=== PATIENT | female | born 1935 | race Caucasian/White ===

== ENCOUNTER 2018-08-05 13:49 | Outpatient (CLI) | payer MEDICARE, OTHER ==
[2018-08-05] MEDS ORDERED: NAPH15DR66 EACHEYE (15:00)
[2018-08-05] MEDS ORDERED: ACET-1600 PO (15:00)
[2018-08-05] MEDS ORDERED: FLUT9.9S NAS (15:00)
[2018-08-05] MEDS ORDERED: LEVO50TA5 PO (15:00)
[2018-08-05] MEDS ORDERED: PHAZYME PO (15:00)
[2018-08-05] MEDS ORDERED: VIT1CAPS42 PO (15:00)
[2018-08-05] MEDS ORDERED: ASPI81TA45 PO (15:00)
[2018-08-05] MEDS ORDERED: ZOLP10TA5 PO (15:00)
[2018-08-05] MEDS ORDERED: BENEFIBER (15:00)
[2018-08-05] MEDS ORDERED: [UNRECOGNIZED DRUG - OTHER] NS (15:00)
[2018-08-05] MEDS ORDERED: LORA2TAB PO (15:00)
[2018-08-05] MEDS ORDERED: ZANTAC PO (15:00)
[2018-08-05] MEDS ORDERED: CHOL10003 PO (15:00)
[2018-08-05 15:12] LABS: BASOPHILS # (AUTO) 0.03 x10^3/uL (0-0.1); BASOPHILS % (AUTO) 0 % (0-1); EOSINOPHILS % (AUTO) 1 % (1-7); LYMPHOCYTES # (AUTO) 2.88 x10^3/uL (1-3.4); LYMPHOCYTES % (AUTO) 31 % (22-44); MD NO; MEAN CORPUSCULAR HEMOGLOBIN 30.8 pg (27.0-34.8); MEAN CORPUSCULAR HGB CONC 34.1 g/dL (32.4-35.8); MEAN CORPUSCULAR VOLUME 90.2 fL (80-100); MEAN PLATELET VOLUME 8.7 fL (7.4-10.4); MONOCYTES # (AUTO) 0.54 x10^3/uL (0.2-0.8); MONOCYTES % (AUTO) 6 % (2-9); NEUTROPHILS # (AUTO) 5.63 x10^3/uL (1.8-6.8); NEUTROPHILS % (AUTO) 61 % (42-75); PLATELET COUNT 207 x10^3/uL (130-400); RED BLOOD COUNT 4.77 x10^6/uL (3.82-5.3); RED CELL DISTRIBUTION WIDTH 13.6 % (9.6-15.2)
[2018-08-05 15:15] LABS: ALANINE AMINOTRANSFERASE 18 U/L (12-78); ALBUMIN 4.1 g/dL (3.4-5.0); ANION GAP 7 mmol/L (5-15); CHLORIDE 107 mmol/L (98-107)
[2018-08-05 15:17] LABS: ALKALINE PHOSPHATASE 77 U/L (45-117); BILIRUBIN,TOTAL 0.4 mg/dL (0.2-1.0); TOTAL PROTEIN 7.6 g/dL (6.4-8.2)
[2018-08-05 15:56] LABS: INTERNATIONAL NORMALIZED RATIO 1.15 (0.93-1.1)
== END 2018-08-05 23:59 | disposition home or self-care (01) ==
LOC: STAR 13:49
PROVIDERS: ATTEND Specialist
DX: Z01.818 Encounter for other preprocedural examination (principal); N81.10 Cystocele, unspecified; I51.7 Cardiomegaly; R94.31 Abnormal electrocardiogram [ECG] [EKG]
CPT/HCPCS: 36415; 71046; 80053; 85025; 85610; 85730; 93005

== ENCOUNTER 2018-08-16 05:56 | Day surgery (SDC) | payer MEDICARE, OTHER ==
[~2018-08-16] VITALS: Ht 158.8 cm; Wt 78.5 kg
[~2018-08-16 05:56] MED LIST: ACET-1600 PO; ASPI81TA45 PO; BENEFIBER; CHOL10003 PO; FLUT9.9S NAS; LEVO50TA5 PO; LORA2TAB PO; NAPH15DR66 EACHEYE; PHAZYME PO; VIT1CAPS42 PO; ZANTAC PO; ZOLP10TA5 PO; [UNRECOGNIZED DRUG - OTHER] NS
[2018-08-16] MEDS ORDERED: LACTATED RINGERS 1,000 ML IV SCH (07:14)
[2018-08-16 07:23] VITALS: BP 160/77
[2018-08-16] MEDS ORDERED: BUPIVACAINE/PF 0.25% ONE (10:24)
[2018-08-16] MEDS ORDERED: FENTANYL PF 250 MCG/5ML ONE (10:56)
[2018-08-16] MEDS ORDERED: NEOSTIGMINE 1 MG/ML, 10ML ONE (12:42)
[2018-08-16] MEDS ORDERED: PROPOFOL 10 MG/ML, 20ML ONE (12:42)
[2018-08-16] MEDS ORDERED: DEXAMETHASONE 4 MG/ML, 1ML ONE (12:42)
[2018-08-16] MEDS ORDERED: ONDANSETRON 2MG/ML, 2ML ONE (12:42)
[2018-08-16] MEDS ORDERED: SUCCINYLCHOLINE 20 MG/ML, 10ML ONE (12:42)
[2018-08-16] MEDS ORDERED: CEFAZOLIN 1,000 MG ONE (12:42)
[2018-08-16] MEDS ORDERED: ROCURONIUM 10MG/ML,5ML ONE (12:42)
[2018-08-16] MEDS ORDERED: GLYCOPYRROLATE 0.2MG/1ML, 5ML ONE (12:42)
[2018-08-16] MEDS ORDERED: SUGAMMADEX 200 MG/2 ML IVPush ONE (13:12)
[2018-08-16] MEDS ORDERED: ACETAMINOPHEN 650 MG/20.3 ML UDC ONE (13:59)
[2018-08-16] MEDS ORDERED: ONDANSETRON ODT 8 MG PO PRN (14:00)
[2018-08-16] MEDS ORDERED: hydrALAzine 20 MG/ML, 1ML IV PRN (14:00)
[2018-08-16] MEDS ORDERED: ACETAMINOPHEN 325 MG TABLET PO PRN (14:00)
[2018-08-16] MEDS ORDERED: OXYcodone 5 MG/5 ML ORAL.SOL UDC PO PRN (14:00)
[2018-08-16] MEDS ORDERED: FENTANYL PF 100 MCG/2ML IV PRN (14:00)
[2018-08-16] MEDS ORDERED: LABETALOL 5MG/ML, 20ML IV PRN (14:00)
[2018-08-16] MEDS ORDERED: PROMETHAZINE 25 MG/ML, 1ML IM PRN (14:00)
[2018-08-16] MEDS ORDERED: HYDROmorphone 2 MG/ML, 1ML IVPush PRN (14:00)
[2018-08-16] MEDS ORDERED: ONDANSETRON 2MG/ML, 2ML IV PRN (14:00)
== END 2018-08-16 16:45 | disposition home or self-care (01) ==
LOC: SDC 05:56
PROVIDERS: ATTEND Specialist
DX: N81.10 Cystocele, unspecified (principal); N81.6 Rectocele; I10 Essential (primary) hypertension; E03.9 Hypothyroidism, unspecified; Z88.6 Allergy status to analgesic agent; Z88.1 Allergy status to other antibiotic agents; Z88.5 Allergy status to narcotic agent; Z88.8 Allergy status to other drugs, medicaments and biological substances; Z90.49 Acquired absence of other specified parts of digestive tract; Z90.710 Acquired absence of both cervix and uterus; Z90.721 Acquired absence of ovaries, unilateral; Z72.89 Other problems related to lifestyle
CPT/HCPCS: 36415; 57260; 86850; 86870; 86900; 86922; 88305; J0330; J0690; J1100; J2405; J2550; J2704; J2710; J3010; J3490; J7120; 86923